=== PATIENT | female | born 1955 | race Caucasian/White ===

== ENCOUNTER 2020-02-07 10:56 | Inpatient (IN) | payer OTHER ==
[~2020-02-07] VITALS: Ht 172.7 cm; Wt 81.6 kg
[2020-02-07 11:00] VITALS: BP 83/34
[2020-02-07 11:30] LABS: CALCIUM 7.3 mg/dL (8.5-10.1); CREATININE 3.1 mg/dL (0.6-1.3); POTASSIUM 4.8 mmol/L (3.5-5.1)
[2020-02-07 11:31] LABS: APTT 38.7 Seconds (25.0-31.3); PROTIME 19.6 Seconds (9.20-11.50)
[2020-02-07 11:36] LABS: MCH 23.4 pg (26.0-34.0); MCHC 27.9 g/dL (28.0-37.0); MCV 83.9 fL (80.0-100.0); MPV 7.2 fl. (7.2-11.1); NUCLEATED RBCS 0 /100WBC; RBC 4.29 mil/uL (4.20-5.00); RDW-CV 20.4 % (10.5-14.5)
[2020-02-07 11:41] LABS: ALBUMIN 2.3 g/dL (3.4-5.0); TOTAL BILIRUBIN 0.4 mg/dL (<0.1-1.0); TOTAL PROTEIN 6.1 g/dL (6.4-8.2)
[2020-02-07 11:46] LABS: PLATELET COUNT* 1031 thou/uL (150-400); WBC 46.8 thou/uL (4.0-11.0)
[2020-02-07 12:16] LABS: ABSOLUTE LYMPHOCYTES 1.9 thou/uL (0.8-5.3); ABSOLUTE MONOCYTES 0.9 thou/uL (0.0-1.2); ANISOCYTOSIS 3+; HYPOCHROMASIA 1+; PLATELET ESTIMATE INCREASED; TEARDROPS 1+
--- NOTE | 2020-02-07 13:33 | NUR ---
RIGHT BASILIC VESSEL ACCESSED FOR 5 CROATIAN TRIPLE LUMEN PICC. LINE PRE-TRIMMED TO 36CM AND ADVANCED TO THE ZERO RON WITH NO RESISTANCE MET. UPPER ARM CIRCUMFERENCE ABOVE INSERTION SITE= 12". SHERLOCK MAGNET AND 3CG CONFIRMATION OF TIP TERMINATION AT THE CAVOATRIAL JUNCTION APPRECIATED. GUIDE WIRE REMOVED, LINE FLUSHED AND INSERTION SITE DRESSED. REPORT GIVEN TO DR RASCON.
--- NOTE | 2020-02-07 14:07 | NUR ---
PT'S MOTHER'S CELL PHONE # IS [phone]
--- NOTE | 2020-02-07 15:03 | EKG ---
[place] [address] ELECTROCARDIOGRAM REPORT Name: DEJAH DÍAZ Room: [place] [address] ADM IN .R.#: [id number] Admission: 02/07/20 Attend Phys: Titi Mariscal, Discharge: Date of : 57 Date of Service: 02/07/20 1107 Report #: [id number] THIS REPORT FOR: //name// [facility] ED Test Date: 2020-02-07 Test Time: 11:07:18 Pat Name: DEJAH DÍAZ Department: Room: [facility] Gender: [employer] Manager: DENNIS : 1955 Requested By: Vinicio Siddiqui Order Number: [id number] MD: Sergio Tolliver Measurements Intervals [place] Rate: 98 P: 72 VA: 122 QRS: 37 QRSD: 142 T: -69 QT: 373 QTc: 477 Interpretive Statements Sinus tachycardia Probable left atrial enlargement artifact noted No previous ECG available for comparison Electronically Signed On 02-07-2020 15:03:45 CDT by Sergio Tolliver [email or web address] <ELECTRONICALLY SIGNED> By: Sergio Tolliver MD, [facility] 02/07/20 1503 1107 1107 Sergio Tolliver MD, [facility] /EPI
[2020-02-07 15:16] VITALS: BP 67/24
[2020-02-07 16:07] VITALS: BP 76/29
--- NOTE | 2020-02-07 16:10 | NUR ---
PT COMFORT CARE, ANSWERED QUESTIONS FOR ADMISSION PAPERWORK BEST I COULD. DIET ORDERED FOR MOTHER WHO IS STAYING WITH PT. FAMILY AT BEDSIDE 3 AT A TIME. PT RESPIRATIONS SHALLOW. PT IS COLD AND SKIN CYANOTIC. BP LOW. O2 SATS AT 76% ON 3 LITERS. PT APPEARS COMFORTABLE. MORAN IN PLACE. WILL CONTINUE TO MONITOR.
--- NOTE | 2020-02-07 18:13 | NUR ---
PT IN BED COMFORTABLE. BREATHING SHALLOW, FAMILY AT BEDSIDE. MOTHER WILL SPEND THE NIGHT. FAMILY TALKED WITH REGARDING VISITORS ALLOWED AT A TIME. HOURLY ROUNDING COMPLETED. WILL CONTINUE TO MONITOR. COMFORT CARE.
[2020-02-07 19:46] VITALS: BP 85/35
--- NOTE | 2020-02-08 04:31 | NUR ---
PT RESTING IN BED COMFORTABLY, BREATHING SHALLOW AND REGULAR. PT'S MOTHER AT BEDSIDE ALL NIGHT. COMFORT CARE MEASURES DISCUSSED WITH PT'S MOTHER AND SON. NO S/SX OF DISTRESS OR DISCOMFORT. HOURLY ROUNDINGS AND MORE FREQUENT ROUNDINGS COMPLETED. WILL CONTINUE WITH COMFORT CARE AND MONITORING.
[2020-02-08 07:30] VITALS: BP 106/47
--- NOTE | 2020-02-08 10:29 | NUR ---
Nutrition: Comfort Care. Defer nutrition unless consulted.
--- NOTE | 2020-02-08 13:00 | NUR ---
SPOKE WITH MOTHER,SON-ANAIS AND SISTER-ANN-MARIE. THEY FEEL PT IS VERY COMFORTABLE. SHE SAID SHE WILL SPEAK WITH THEM SOMETIMES. MOTHER SAID PT.MOVED IN WITH HER BECAUSE SHE KNEW SHE WAS DYING AND DIDN'T WANT TO BE ALONE. ALL AGREE THEY WANT PT.KEPT COMFORTABLE. DISCUSSED OPTIONS FOR PT.AND FAMILY, HOSPICE HOUSE, HOME WITH HOSPICE OR NSG.FACILITY WITH HOSPICE. TOLD THEM SHE MAY NO QUALIFY FOR HOSPICE HOUSE. MOTHER SAID I WOULD LIKE TO TAKE HER HOME TO MY HOUSE AND TAKE CARE OF HER WITH HOSPICE. ANN-MARIE AND ANAIS AGREEABLE. THEY CHOSE [facility] FROM [place]. SPOKE WITH ADMISSIONS [phone]. BLAKE WILL COME OUT TO VISIT WITH FAMILY. FAXED FACE SHEET AND H&P TO [phone]. THEY DECIDED THEY WILL TAKE PT.TO HER MOMS HOME TOMORROW WITH [facility]. OUTSIDE OF HOSPITAL DNR FORM ON CHART FOR SIGN. HOSPICE WILL ORDER EQUIPMENT FOR PT. TO BE DELIVERED TO HER MOM'S HOUSE TOMORROW AM.
--- NOTE | 2020-02-08 18:12 | NUR ---
ASSUMED CARE OF PATIENT AT APPROX 0730. ALERT AND ORIENTED. PATIENT IS RESPONSIVE WHEN SPOKEN TO AND ANSWERS QUESTIONS APPROPRIATELY. VSS ON ON 3 LITERS. PATIENT OBSERVED RESTING IN BED AND EXPRESSED NO NEEDS ON HOURLY ROUNDS. PATIENT HAD NO COMPLAINTS OF PAIN. PATIENT MOTHER HAS BEEN AT BEDSIDE THROUGHOUT THE SHIFT AND HAS COMPLAINED THAT STAFF HAS NOT BEEN IN THE ROOM OFTEN ENOUGH TO CHECK ON HER MOTHER AND THE STAFF HERE JUST DOESN'T CARE OR GET PAID ENOUGH TO CARE ABOUT PEOPLE. I GENTLY EDUCATED THE PATIENTS MOTHER ON HOW COMFORT CARE WORKS, THAT WE ONLY DO VITALS ONCE PER SHIFT AND WE DO OUR BEST TO KEEP THE PATIENT COMFORTABLE. THE PATIENTS MOTHER STATED THAT SHE IS "NOT HAPPY WITH THE AWFUL CARE THAT IS GIVEN HERE BY PEOPLE WHO JUST DON'T CARE OF GET PAIN TO CARE." I PLACED THE CALL LIGHT IN THE PATIENTS REACH AND INSTRUCTED HER TO CALL ME IF SHE HAS ANY NEEDS. HOURLY ROUNDS COMPLETED. WILL CONTINUE WITH PLAN OF CARE.
[2020-02-08 20:00] VITALS: BP 122/55
--- NOTE | 2020-02-09 05:56 | NUR ---
PATIENT SLEEPING ENTIRE SHIFT. PT WITH VITALS WNL. PT HAS NOT WOKE UP. MOTHER AT BEDSIDE, CALM, PLEASANT BUT VERY ANXIOUS. DENIES NEEDS. MOTHER SLEPT ON COT DURING THIS SHIFT. MOTHER REFUSING TURNS ON THE PATIENT STATING PT LOOKS COMORTABLE AND SHE DOES NOT WANT HER BOTHERED. FREQUENTLY USED ITEMS AND CALL LIGHT WITHIN REACH. SIDERAILS UP X3. FREQUENT OBSERVATIONS MADE. WILL CONTINUE TO MONITOR.
[2020-02-09 09:05] VITALS: BP 145/62
[2020-02-09 10:56] VITALS: BP 145/62
[2020-02-09 12:31] VITALS: BP 145/62
--- NOTE | 2020-02-09 12:31 | NUR ---
PT LEFT VIA AMBULANCE TO HOME WITH HOSPICE. OUTSIDE DNR FORM SENT WITH AMBULANCE. PT BELONGINGS GATHERED. PT LEFT VIA CART WITH NURSING STAFF TO HOME WITH HOSPICE. FALL RISK PRECAUTIONS IN PLACE. HOURLY ROUNDING COMPLETED. IV AND PICC REMOVED PER HOSPICE REQUESTS.
== END 2020-02-09 12:32 | disposition hospice, home (50) | DRG 871 ==
LOC: M.ERS 10:56 → M.ORTHSURG 14:09 → M.TBA-ER 14:09 → M.ORTHSURG 15:31
PROVIDERS: Family Medicine; ADMIT Internal Medicine; ATTEND Internal Medicine
PROC: 05HY33Z Insertion of Infusion Device into Upper Vein, Percutaneous Approach (ICD-10-PCS; principal; 2020-02-07)
DX: A41.9 Sepsis, unspecified organism (principal); N17.0 Acute kidney failure with tubular necrosis; G92 Toxic encephalopathy; J96.01 Acute respiratory failure with hypoxia; C34.90 Malignant neoplasm of unspecified part of unspecified bronchus or lung; R57.9 Shock, unspecified; R65.20 Severe sepsis without septic shock; Z66 Do not resuscitate; Z51.5 Encounter for palliative care; Z20.828 Contact with and (suspected) exposure to other viral communicable diseases; Z85.830 Personal history of malignant neoplasm of bone; Z90.710 Acquired absence of both cervix and uterus; Z88.0 Allergy status to penicillin; Z88.6 Allergy status to analgesic agent; Z91.040 Latex allergy status; Z87.891 Personal history of nicotine dependence; Z79.899 Other long term (current) drug therapy